=== PATIENT | female | born 1980 | race African-American/Black ===

== ENCOUNTER → 2017-03-04 | Outpatient (CLI) | payer BC ==
--- NOTE | 2017-03-04 10:10 | KCIC ---
Complete abdominal ultrasound History: Abdominal distention. Comparison: None. Procedure: Transabdominal ultrasound images are obtained. Findings: Visualized pancreas is unremarkable. Liver is mildly increased in echogenicity. No focal hepatic masses are identified. Right lobe of the liver measures enlarged at 18.7 cm. Gallbladder has an unremarkable appearance. Common bile duct measures normally at 5 mm in diameter. Spleen is homogeneous and measures 10.4 cm in length. Right kidney is normal in size and configuration without hydronephrosis. Left kidney is normal in size and configuration without hydronephrosis. Visualized portions of the aorta and IVC have normal caliber. Impression: 1. Mildly enlarged, mildly echogenic liver, compatible with fatty liver disease. 2. No evidence of gallbladder pathology. Electronically signed by: Armin Goodman MD (03/04/2017 10:06 AM) [facility]
== END | disposition home or self-care (01) ==
LOC: KCIC US 08:30
PROVIDERS: ATTEND Internal Medicine Gastroenterology
DX: K76.0 Fatty (change of) liver, not elsewhere classified (principal)
CPT/HCPCS: 76700